=== PATIENT | female | born 1990 | race Caucasian/White ===

== ENCOUNTER 2021-02-08 07:56 | Inpatient (IN) ==
[2021-02-08] MEDS ORDERED: OXYTOCIN 30 UNITS/500 ML BAG IV PRN ×2 (08:22→08:23)
[2021-02-08 08:53] LABS: Hematocrit (blood only) 34.9 % (37-47); Hemoglobin 11.5 g/dL (12.0-16.0); Mean Corpuscular Hemoglobin 28.8 pg (25-34); Mean Corpuscular Volume 87.3 fL (80-100); Mean Platelet Volume 10.6 fL (7.4-10.4); Platelet Count 185 K/uL (130-400); RDW Coefficient of Variation 14.2 % (11.5-14.5); RDW Standard Deviation 45.1 fL (36.4-46.3); White Blood Count 8.47 K/uL (4.8-10.8)
[2021-02-08] MEDS: LACTATED RINGER'S 1,000 ML IV PRN ×4 (09:25→20:43)
[2021-02-08] MEDS ORDERED: FAMOTIDINE 40 MG TABLET PO ONE (09:57)
[2021-02-08] MEDS ORDERED: SODIUM CHLORIDE 0.9% INJ 10 ML VIAL ONE (10:15)
[2021-02-08] MEDS ORDERED: ePHEDrine sulfate 50 MG/ML AMP ONE (10:15)
[2021-02-08] MEDS ORDERED: fentaNYL 2MCG/ML ROPIVACAINE 1.25MG/ML 100 ML BAG EPI ONE (10:15)
[2021-02-08] MEDS ORDERED: BUPIVACAINE 0.25% 30 ML VIAL ONE ×2 (10:15→22:06)
[2021-02-08] MEDS ORDERED: fentaNYL citrate 100 MCG/2 ML VIAL ONE ×2 (10:15→22:05)
[2021-02-08] MEDS ORDERED: ePHEDrine sulfate 50 MG/ML AMP IV PRN (10:22)
[2021-02-08] MEDS ORDERED: ONDANSETRON INJ 2 MG/ML 2 ML VIAL IV PRN (10:22)
[2021-02-08] MEDS ORDERED: diphenhydrAMINE 50 MG/ML VIAL IV PRN (10:22)
[2021-02-08] MEDS ORDERED: NALBUPHINE HCL INJ 10 MG/ML AMP IV PRN (10:22)
[2021-02-08] MEDS ORDERED: NALOXONE HCL 0.4 MG/1 ML VIAL/CARP IV PRN (10:22)
[2021-02-08] MEDS ORDERED: NALOXONE HCL 1 MG in SODIUM CHLORIDE 0.9% 1000ML 1,000 ML IV PRN (10:22)
--- NOTE | 2021-02-08 10:22 | Anesthesiology Consultation ---
Date of Service February 08, 2021 Assessment & Plan ASA ASA2 Proposed Anesthesia Anesthesia Type: Labor Epidural Risk / Benefits Reviewed With: PT / POA / Parent / Guardian, Accepts Plan and Informed Consent Obtained History Height/Weight Height: 5 ft 5 in Weight: 97.069 kg Allergies Allergy/AdvReac Type Severity Reaction Status Date / Time apple Allergy Unknown Rash Verified 02/07/21 19:34 amoxicillin [From Augmentin] Allergy Vomiting Verified 02/07/21 19:34 clavulanic acid Allergy Vomiting Verified 02/07/21 19:34 [From Augmentin] Medications Home Medications Medication Instructions Recorded Confirmed Last Taken prenat.vits,mary,vdi-btrc-hyoos 1 tab PO DAILY 01/20/20 02/08/21 02/08/21 famotidine 10 mg tablet (Pepcid AC) 10 mg PO BID 10/12/20 02/08/21 02/07/21 08:00 Active Medications Generic Name Dose Route Start Last Admin Trade Name Freq PRN Reason Stop Dose Admin Lactated Ringer's 1,000 mls @ 125 mls/hr 02/08/21 08:22 02/08/21 09:25 Lr IV 02/10/21 08:21 999 mls/hr .Q8H PRN Infusion L&D Protocol Protocol Past Medical History Medical History ADHD Chronic low back pain Exercise-induced asthma Migraine headache Narcolepsy Pilonidal cyst Exercise / Class Metabolic Activity II 4-5 Yardwork/Stairs/Walk up hill Past Family History Family History Grandmother (Maternal) Hypertension Grandmother (Paternal) Type 2 diabetes mellitus Father Obstructive sleep apnea Other Allergic rhinitis Kidney disease Past Surgical History Surgical History History of oral surgery History of removal of cyst on back Past Anesthesia History No Hx of Anesthesia Complications and No Family Hx of Anesthesia Complications History of PONV No Hx of PONV and No Hx of Motion Sickness Social History Smoking Status: Never smoker Do You Dip or Chew Tobacco: No Hx Alcohol Use: No Hx Substance Use: No substance use type: does not use Review of Systems denies fever/cough/ colds/ chest pain/ SOB/ ROSSI denies ROSSI Physical Exam Vital Signs Last Vital Signs Temp 36.7 C 02/08/21 08:38 Pulse 77 02/08/21 08:08 Resp 18 02/08/21 08:38 BP 109/60 02/08/21 08:08 ENMT Mouth: no TMJ abnormality and no dentition abnormality Thyromental Distance: > or= 3.5 Finger Breadths Mallampati Class: II Neck neck extension not limited Respiratory normal respiratory effort; no respiratory distress Auscultation: lungs clear to auscultation bilaterally Cardiovascular Rate/Rhythm: regular rate and regular rhythm Neurologic moves all extremities Psychiatric Orientation: alert and oriented x 3 Testing Laboratory Results 02/08/21 08:40
--- NOTE | 2021-02-08 11:46 | Procedure Note ---
Procedure Note Date of Service February 08, 2021 Note monitoring was used to ensure reassuring status. After admission exam was completed this morning, labs checked for adequate platelets and negative COVID, epidural was placed per the patient's request. I then was notified as soon as this was accomplished, and I returned to the room. The patient was verbally consented for placement of a yanes for cervical ripening, with discussion of risks, benefits and alternatives. All her questions were answered. Her legs were placed in lithotomy position. A lubricated, gloved hand was used to examine the cervix confirming vertex presentation of the fetus and no change from this morning's exam of /-. A stylet was lubricated and inserted into a yanes catheter to give it stiffness, and the yanes catheter was then advanced along my fingers until it reached the external cervical os. The yanes was then fed forward off of the stylet, which was itself never moved beyond the external os, such that the soft catheter advanced into the uterine cavity outside of the amnion until the balloon was definitely above the internal cervical os. The balloon was then inflated using sterile water to 35cc volume. Gentle traction was used to seat the balloon downward against the internal cervical os. My hand and the stylet were removed from the vagina, and the yanes was secured to the patient's leg with a standard yanes holding sticker. There was no significant bleeding or leakage of fluid. The heart tones remained reassuring after this process, which the patient tolerated well. Yanes catheter of the bladder was also placed, given the placement of epidural so early in this patient's induction course, to avoid repeat straight catheterization. Pitocin will be used at 3 mu/min until cervical balloon is out. After that point it will be increased per usual protocols for labor induction. Coding CPT Codes Misx Procedure Codes - 86547 Placement of cervical dilator: 43289 Placement of cervical dilator ([id number]) [facility] [place] Mis[facility] Procedure Codes 25253 Placement of cervical dilator
[2021-02-08] MEDS: fentaNYL 2MCG/ML ROPIVACAINE 1.25MG/ML 100 ML BAG EPI PRN (19:14)
--- NOTE | 2021-02-08 22:17 | Communication Note ---
Date of Service: February 08, 2021 asked to reevaluate pt 2/2 pain. pt reports pressure in a specific area of pelvis and back pain. bolused with 100 mcg fentanyl and 5mL of 0.25% bupivic josé miguel. pt received relief. Educated pt on the difficulty in controlling pressure pain and back pain. pt satisfied with care
[2021-02-09] MEDS ORDERED: CALCIUM CARBONATE 500 MG CHEWABLE TAB PO ONE (00:27)
[2021-02-09] MEDS: fentaNYL 2MCG/ML ROPIVACAINE 1.25MG/ML 100 ML BAG EPI PRN ×2 (01:34→07:23)
[2021-02-09] MEDS: LACTATED RINGER'S 1,000 ML IV PRN (04:21)
--- NOTE | 2021-02-09 06:32 | Labor Progress Brief Note ---
Date of Service February 09, 2021 Subjective Comfortable with epidural. Pt was sleeping when RN and I entered the room. Assessment & Plan (1) Encounter for induction of labor: Plan: Patient with postdates . Unsuccessful yanes placement on pre-induction evening, and limited tolerance of vaginal exam/yanes placement led to patient electing epidural prior to yanes placement on day of induction. Epidural unable to be placed until nearly 11am on day of induction due in part to difficulty in patient tolerating that process as well. Once yanes was placed, it remained in situ until evening, at which point patient reached 4cm and pitocin could be moved upwards from ripening doses into induction doses. Through the night I have checked the strip intermittently, and received updates from the RN's who have checked her at intervals and seen good progress until this last check. Patient has remained 8-9cm now for the last two hours, with swelling of the cervix noted on my exam now. There has been excellent descent and feels like plenty of room, so IUPC was placed at this point to allow titration of pitocin to hopefully get the last bit of cervix to reduce. First contraction measured 75MVU but since then, strength has rapidly decreased, and next few contractions dropped to more like 30MVU. There is likely room to go up on pitocin, if tolerance permits it. I remain optimistic that we can achieve vaginal delivery, and document the above to highlight that this is not so much an abnormally slow labor process as an administratively-delayed induction start. Admission and Anticipated Discharge Date Admission Date: February 08, 2021 Physical Exam Genitourinary: FHT cat 1 Barlow Q 2-2.5min Pit @ 11 Cervix 8-/+1 New bloody show noted. presentation KARIN with some caput Cervix mostly remains posterior and is a bit swollen there, anterior lip nearly gone and reducible but this brings the posterior portion of the cervix more anterior, so I'm unable to reduce it all the way around. Patient has been high- bains's recently and may benefit from change of position. IUPC placed with patient permission to allow further titration of pitocin if possible. Results & Data ([facility]) Vital Signs (Past 12 Hours) Vital Signs Temp Pulse Resp BP Pulse Ox 02/09/21 06:18 87 98 02/09/21 06:16 94 H 90 02/09/21 06:13 108 H 97 02/09/21 06:11 96 H 119/81 02/09/21 06:08 78 96 02/09/21 06:03 75 96 02/09/21 06:00 18 02/09/21 05:58 77 96 02/09/21 05:54 77 115/77 02/09/21 05:53 74 96 02/09/21 05:48 77 96 02/09/21 05:43 79 96 02/09/21 05:39 82 115/75 02/09/21 05:38 80 96 02/09/21 05:33 79 96 02/09/21 05:30 16 02/09/21 05:28 88 96 02/09/21 05:25 81 118/79 02/09/21 05:23 92 H 96 02/09/21 05:18 75 96 02/09/21 05:13 73 97 02/09/21 05:09 93 H 117/77 02/09/21 05:08 98.2 F 86 96 02/09/21 05:03 75 97 02/09/21 05:00 16 02/09/21 04:58 75 96 02/09/21 04:56 76 112/71 02/09/21 04:53 71 96 02/09/21 04:48 72 96 02/09/21 04:43 75 95 02/09/21 04:39 75 113/75 02/09/21 04:38 70 96 02/09/21 04:33 72 95 02/09/21 04:30 16 02/09/21 04:28 73 96 02/09/21 04:24 71 110/74 02/09/21 04:23 74 97 02/09/21 04:18 75 97 02/09/21 04:13 96 H 100 02/09/21 04:09 69 111/73 02/09/21 04:08 72 96 02/09/21 04:03 78 95 02/09/21 04:00 16 02/09/21 03:58 74 96 02/09/21 03:54 75 103/72 02/09/21 03:53 77 97 02/09/21 03:48 98 H 97 02/09/21 03:43 85 96 02/09/21 03:39 85 110/70 02/09/21 03:38 69 95 02/09/21 03:33 68 95 02/09/21 03:30 20 02/09/21 03:28 70 95 02/09/21 03:25 74 109/70 02/09/21 03:23 71 95 02/09/21 03:18 70 95 02/09/21 03:13 71 95 02/09/21 03:10 72 105/68 02/09/21 03:08 72 95 02/09/21 03:03 73 95 02/09/21 03:00 20 02/09/21 02:58 75 95 02/09/21 02:56 74 109/69 02/09/21 02:53 80 95 02/09/21 02:48 77 95 02/09/21 02:43 76 96 02/09/21 02:40 98.1 F 71 107/63 02/09/21 02:38 79 96 02/09/21 02:33 93 H 99 02/09/21 02:30 20 02/09/21 02:28 84 96 02/09/21 02:25 89 116/83 02/09/21 02:23 93 H 97 02/09/21 02:18 86 94 02/09/21 02:13 88 96 02/09/21 02:09 86 113/75 02/09/21 02:08 83 97 02/09/21 02:03 82 96 02/09/21 02:00 16 02/09/21 01:58 86 97 02/09/21 01:55 77 116/77 02/09/21 01:53 78 96 02/09/21 01:48 102 H 98 02/09/21 01:43 74 95 02/09/21 01:41 82 112/71 02/09/21 01:38 79 96 02/09/21 01:33 86 99 02/09/21 01:30 18 02/09/21 01:28 75 95 02/09/21 01:24 97 H 112/68 02/09/21 01:23 76 96 02/09/21 01:18 75 98 02/09/21 01:13 75 98 02/09/21 01:10 98.6 F 93 H 120/72 02/09/21 01:08 76 96 02/09/21 01:03 73 96 02/09/21 01:00 16 02/09/21 00:58 75 97 02/09/21 00:54 75 120/76 02/09/21 00:53 72 96 02/09/21 00:48 73 96 02/09/21 00:43 76 96 02/09/21 00:40 74 119/75 02/09/21 00:38 75 96 02/09/21 00:33 72 96 02/09/21 00:30 18 02/09/21 00:28 80 96 02/09/21 00:26 77 124/79 02/09/21 00:23 85 98 02/09/21 00:18 95 H 98 02/09/21 00:15 70 90 02/09/21 00:13 72 95 02/09/21 00:09 77 107/68 02/09/21 00:08 70 96 02/09/21 00:03 71 96 02/09/21 00:00 16 02/08/21 23:58 71 96 02/08/21 23:56 70 114/68 02/08/21 23:53 69 96 02/08/21 23:48 72 97 02/08/21 23:43 72 96 02/08/21 23:40 77 114/70 02/08/21 23:38 73 97 02/08/21 23:33 78 97 02/08/21 23:30 18 02/08/21 23:28 81 96 02/08/21 23:24 69 107/65 02/08/21 23:23 68 97 02/08/21 23:18 69 96 02/08/21 23:13 73 96 02/08/21 23:10 71 107/64 02/08/21 23:08 70 96 02/08/21 23:03 67 95 02/08/21 23:00 16 02/08/21 22:58 71 95 02/08/21 22:55 99.0 F 02/08/21 22:53 88 110/59 L 97 02/08/21 22:51 79 168/75 H 02/08/21 22:49 71 94 02/08/21 22:48 69 94 02/08/21 22:44 67 94 02/08/21 22:43 66 95 02/08/21 22:40 78 101/61 02/08/21 22:38 66 95 02/08/21 22:35 68 94 02/08/21 22:33 68 95 02/08/21 22:30 69 16 107/64 02/08/21 22:28 71 94 02/08/21 22:23 71 94 02/08/21 22:22 68 107/58 L 02/08/21 22:21 71 94 02/08/21 22:18 78 95 02/08/21 22:16 67 94 02/08/21 22:13 72 95 02/08/21 22:09 69 114/63 02/08/21 22:08 74 97 02/08/21 22:03 78 107/56 L 100 02/08/21 22:00 20 02/08/21 21:58 72 95 02/08/21 21:53 73 96 02/08/21 21:50 73 125/74 02/08/21 21:48 77 96 02/08/21 21:43 73 96 02/08/21 21:41 72 120/72 02/08/21 21:38 71 96 02/08/21 21:33 73 97 02/08/21 21:30 73 20 122/76 02/08/21 21:28 79 98 02/08/21 21:23 73 97 02/08/21 21:22 73 115/72 02/08/21 21:18 73 97 02/08/21 21:14 98.1 F 02/08/21 21:13 76 99 02/08/21 21:11 75 115/74 02/08/21 21:08 73 97 02/08/21 21:03 68 97 02/08/21 21:00 20 02/08/21 20:59 73 108/72 02/08/21 20:58 73 98 02/08/21 20:53 71 97 02/08/21 20:50 69 110/70 02/08/21 20:48 70 98 02/08/21 20:43 72 97 02/08/21 20:41 68 97/52 L 02/08/21 20:38 75 98 02/08/21 20:33 75 99 02/08/21 20:30 18 02/08/21 20:29 71 98/53 L 02/08/21 20:28 70 98 02/08/21 20:23 68 97 02/08/21 20:21 69 101/55 L 02/08/21 20:18 70 98 02/08/21 20:13 76 98 02/08/21 20:10 85 103/58 L 02/08/21 20:08 71 99 02/08/21 20:04 68 100/57 L 02/08/21 20:03 73 98 02/08/21 20:02 68 98/58 L 02/08/21 20:00 20 02/08/21 19:58 76 98 02/08/21 19:53 74 98 02/08/21 19:52 69 87/54 L 02/08/21 19:50 85 85/55 L 02/08/21 19:48 77 98 02/08/21 19:43 79 102/55 L 97 02/08/21 19:38 74 98 02/08/21 19:33 73 98 02/08/21 19:31 81 96/50 L 02/08/21 19:30 18 02/08/21 19:28 79 98 02/08/21 19:23 74 97 02/08/21 19:20 98.8 F 75 20 88/55 L 02/08/21 19:18 92 H 98 02/08/21 19:13 75 98 02/08/21 19:10 76 101/56 L 02/08/21 19:08 71 97 02/08/21 19:03 76 97 02/08/21 19:00 73 99/55 L 02/08/21 18:58 70 97 02/08/21 18:53 72 97 02/08/21 18:50 67 103/58 L 02/08/21 18:48 73 97 02/08/21 18:43 70 96 02/08/21 18:40 73 100/57 L 02/08/21 18:38 71 96 02/08/21 18:33 76 96 02/08/21 18:30 71 102/56 L 02/08/21 18:28 70 96 02/08/21 18:23 85 97 Coding Level of Care Code None Diagnoses Encounter for induction of labor Z34.90
[2021-02-09] MEDS ORDERED: NURSING L&D Epidural Breakthrough Pain Update ONE (07:12)
[2021-02-09] MEDS ORDERED: CITRIC ACID/SODIUM CITRATE 15 ML UDC ONE (10:14)
--- NOTE | 2021-02-09 10:17 | Labor Progress Brief Note ---
Date of Service February 09, 2021 Subjective Patient is comfortable with epidural. FHT have been showing late decelerations, not responsive to multiple repositions of patient and resuscitative measures. I discussed this with patient. Recommend proceed to delivery by section. She is agreeable. We reviewed consent, informed consent obtained. Cervix still with posterior lip, station 0. Assessment & Plan Admission and Anticipated Discharge Date Admission Date: February 08, 2021 Results & Data ([facility]) Vital Signs (Past 12 Hours) Vital Signs Temp Pulse Resp BP Pulse Ox 02/09/21 10:13 123 H 94 02/09/21 10:11 86 134/82 02/09/21 10:08 90 96 02/09/21 10:07 88 90 02/09/21 10:03 73 97 02/09/21 10:00 76 125/71 02/09/21 09:58 84 96 02/09/21 09:53 85 98 02/09/21 09:51 102 H 89 L 02/09/21 09:48 77 96 02/09/21 09:43 80 97 02/09/21 09:39 89 108/71 02/09/21 09:38 73 97 02/09/21 09:33 73 97 02/09/21 09:28 73 97 02/09/21 09:24 72 113/73 02/09/21 09:23 74 97 02/09/21 09:18 73 98 02/09/21 09:16 74 87 L 02/09/21 09:13 74 98 02/09/21 09:09 78 110/71 02/09/21 09:08 76 98 02/09/21 09:03 79 100 02/09/21 09:00 106 H 16 88 L 02/09/21 08:58 82 99 02/09/21 08:55 86 104/62 02/09/21 08:53 94 H 98 02/09/21 08:49 37.1 C 16 02/09/21 08:48 71 98 02/09/21 08:43 70 98 02/09/21 08:41 71 99/59 L 02/09/21 08:38 74 98 02/09/21 08:33 71 98 02/09/21 08:28 69 98 02/09/21 08:25 77 95/60 L 02/09/21 08:23 71 98 02/09/21 08:18 80 99 02/09/21 08:13 81 99 02/09/21 08:11 88 107/63 02/09/21 08:09 93 H 88 L 02/09/21 08:08 103 H 99 02/09/21 08:03 74 97 02/09/21 07:58 78 98 02/09/21 07:56 82 117/80 02/09/21 07:55 92 H 88 L 02/09/21 07:53 79 98 02/09/21 07:48 83 98 02/09/21 07:43 82 98 02/09/21 07:40 78 103/66 02/09/21 07:38 84 98 02/09/21 07:33 92 H 100 02/09/21 07:30 18 02/09/21 07:28 36.9 C 87 18 100 02/09/21 07:24 79 105/69 02/09/21 07:23 83 99 02/09/21 07:18 80 99 02/09/21 07:13 86 98 02/09/21 07:09 86 99/65 L 02/09/21 07:08 86 100 02/09/21 07:03 82 99 02/09/21 07:00 18 02/09/21 06:58 95 H 98 02/09/21 06:54 80 95/59 L 02/09/21 06:53 80 99 02/09/21 06:48 88 93/60 L 97 02/09/21 06:43 99 H 96 02/09/21 06:40 97 H 89 L 02/09/21 06:38 86 97 02/09/21 06:33 81 97 02/09/21 06:30 20 02/09/21 06:28 95 H 99 02/09/21 06:23 83 96 02/09/21 06:18 87 98 02/09/21 06:16 94 H 90 02/09/21 06:13 108 H 97 02/09/21 06:11 96 H 119/81 02/09/21 06:08 78 96 02/09/21 06:03 75 96 02/09/21 06:00 18 02/09/21 05:58 77 96 02/09/21 05:54 77 115/77 02/09/21 05:53 74 96 02/09/21 05:48 77 96 02/09/21 05:43 79 96 02/09/21 05:39 82 115/75 02/09/21 05:38 80 96 02/09/21 05:33 79 96 02/09/21 05:30 16 02/09/21 05:28 88 96 02/09/21 05:25 81 118/79 02/09/21 05:23 92 H 96 02/09/21 05:18 75 96 02/09/21 05:13 73 97 02/09/21 05:09 93 H 117/77 02/09/21 05:08 36.8 C 86 96 02/09/21 05:03 75 97 02/09/21 05:00 16 02/09/21 04:58 75 96 02/09/21 04:56 76 112/71 02/09/21 04:53 71 96 02/09/21 04:48 72 96 02/09/21 04:43 75 95 02/09/21 04:39 75 113/75 02/09/21 04:38 70 96 02/09/21 04:33 72 95 02/09/21 04:30 16 02/09/21 04:28 73 96 02/09/21 04:24 71 110/74 02/09/21 04:23 74 97 02/09/21 04:18 75 97 02/09/21 04:13 96 H 100 02/09/21 04:09 69 111/73 02/09/21 04:08 72 96 02/09/21 04:03 78 95 02/09/21 04:00 16 02/09/21 03:58 74 96 02/09/21 03:54 75 103/72 02/09/21 03:53 77 97 02/09/21 03:48 98 H 97 02/09/21 03:43 85 96 02/09/21 03:39 85 110/70 02/09/21 03:38 69 95 02/09/21 03:33 68 95 02/09/21 03:30 20 02/09/21 03:28 70 95 02/09/21 03:25 74 109/70 02/09/21 03:23 71 95 02/09/21 03:18 70 95 02/09/21 03:13 71 95 02/09/21 03:10 72 105/68 02/09/21 03:08 72 95 02/09/21 03:03 73 95 02/09/21 03:00 20 02/09/21 02:58 75 95 02/09/21 02:56 74 109/69 02/09/21 02:53 80 95 02/09/21 02:48 77 95 02/09/21 02:43 76 96 02/09/21 02:40 36.7 C 71 107/63 02/09/21 02:38 79 96 02/09/21 02:33 93 H 99 02/09/21 02:30 20 02/09/21 02:28 84 96 02/09/21 02:25 89 116/83 02/09/21 02:23 93 H 97 02/09/21 02:18 86 94 02/09/21 02:13 88 96 02/09/21 02:09 86 113/75 02/09/21 02:08 83 97 02/09/21 02:03 82 96 02/09/21 02:00 16 02/09/21 01:58 86 97 02/09/21 01:55 77 116/77 02/09/21 01:53 78 96 02/09/21 01:48 102 H 98 02/09/21 01:43 74 95 02/09/21 01:41 82 112/71 02/09/21 01:38 79 96 02/09/21 01:33 86 99 02/09/21 01:30 18 02/09/21 01:28 75 95 02/09/21 01:24 97 H 112/68 02/09/21 01:23 76 96 02/09/21 01:18 75 98 02/09/21 01:13 75 98 02/09/21 01:10 37.0 C 93 H 120/72 02/09/21 01:08 76 96 02/09/21 01:03 73 96 02/09/21 01:00 16 02/09/21 00:58 75 97 02/09/21 00:54 75 120/76 02/09/21 00:53 72 96 02/09/21 00:48 73 96 02/09/21 00:43 76 96 02/09/21 00:40 74 119/75 02/09/21 00:38 75 96 02/09/21 00:33 72 96 02/09/21 00:30 18 02/09/21 00:28 80 96 02/09/21 00:26 77 124/79 02/09/21 00:23 85 98 02/09/21 00:18 95 H 98 02/09/21 00:15 70 90 02/09/21 00:13 72 95 02/09/21 00:09 77 107/68 02/09/21 00:08 70 96 02/09/21 00:03 71 96 02/09/21 00:00 16 02/08/21 23:58 71 96 02/08/21 23:56 70 114/68 02/08/21 23:53 69 96 02/08/21 23:48 72 97 02/08/21 23:43 72 96 02/08/21 23:40 77 114/70 02/08/21 23:38 73 97 02/08/21 23:33 78 97 02/08/21 23:30 18 02/08/21 23:28 81 96 02/08/21 23:24 69 107/65 02/08/21 23:23 68 97 02/08/21 23:18 69 96 02/08/21 23:13 73 96 02/08/21 23:10 71 107/64 02/08/21 23:08 70 96 02/08/21 23:03 67 95 02/08/21 23:00 16 02/08/21 22:58 71 95 02/08/21 22:55 37.2 C 02/08/21 22:53 88 110/59 L 97 02/08/21 22:51 79 168/75 H 02/08/21 22:49 71 94 02/08/21 22:48 69 94 02/08/21 22:44 67 94 02/08/21 22:43 66 95 02/08/21 22:40 78 101/61 02/08/21 22:38 66 95 02/08/21 22:35 68 94 02/08/21 22:33 68 95 02/08/21 22:30 69 16 107/64 02/08/21 22:28 71 94 02/08/21 22:23 71 94 02/08/21 22:22 68 107/58 L 02/08/21 22:21 71 94 02/08/21 22:18 78 95 02/08/21 22:16 67 94 Coding Level of Care Code None
--- NOTE | 2021-02-09 10:18 | History & Physical Bridge Note ---
Date of Service February 09, 2021 History & Physical Bridge Note I have examined the patient, reviewed the History & Physical and in the interval since the performance of the History & Physical I have noted the following changes of clinical significance: no changes noted Will proceed to section for intolerance to labor. Category 3 tracing.
[2021-02-09] MEDS ORDERED: ceFAZolin 2000MG 2,000 MG/15 ML SYR IV SCH (10:35)
[2021-02-09] MEDS ORDERED: fentaNYL citrate 100 MCG/2 ML VIAL ONE (10:37)
[2021-02-09] MEDS ORDERED: LIDOCAINE 2%/EPINEPHRINE 1:200,000 20 ML SDV ONE (10:37)
[2021-02-09] MEDS ORDERED: OXYTOCIN 10 UNITS/ML VIAL ONE ×2 (11:04→11:29)
[2021-02-09] MEDS ORDERED: DEXAMETHASONE SOD INJ 4 MG/ML VIAL ONE (11:31)
[2021-02-09] MEDS ORDERED: ONDANSETRON INJ 2 MG/ML 2 ML VIAL ONE (11:32)
[2021-02-09] MEDS ORDERED: MoRPHine SULFATE PF 1 MG/ML 10 ML AMP/VIAL ONE (11:36)
[2021-02-09] MEDS ORDERED: PHENYLEPHRINE 100MCG/ML 5ML SYR ONE (11:40)
[2021-02-09] MEDS ORDERED: PROMETHAZINE HCL INJ 25 MG/ML 1 ML VIAL ONE (11:45)
[2021-02-09 11:50] LABS: Base Excess Cord Arterial Bld -5.4 mEq/L (-9-1.8); CO2 Cord Arterial Blood 63 mmHg (39.1-73.5); HCO3 Cord Arterial Blood 24 mmol/L (19.7-28.5); PO2 Cord Arterial Blood 12 mmHg (4.1-31.7)
[2021-02-09 11:51] LABS: Base Excess Cord Venous Blood -6.6 mEq/L (-7.7-1.9); Cord Venous Blood HCO3 21 mmol/L (18.4-26.8); Cord Venous Blood PCO2 50 mmHg (30.4-57.2); Cord Venous Blood PO2 21 mmHg (14.1-43.3); Cord Venous Blood pH 7.25 (7.20-7.44); Oxygen Sat Cord Arterial Blood < 60.0 % (<60)
[2021-02-09 11:52] LABS: O2 Saturation Cord Venous Bld < 60.0 % (<68)
[2021-02-09] MEDS ORDERED: NALOXONE HCL 1 MG in SODIUM CHLORIDE 0.9% 1000ML 1,000 ML IV PRN (12:13)
[2021-02-09] MEDS ORDERED: diphenhydrAMINE 50 MG/ML VIAL IV PRN (12:13)
[2021-02-09] MEDS ORDERED: NALBUPHINE HCL INJ 10 MG/ML AMP IV PRN (12:13)
[2021-02-09] MEDS ORDERED: NALOXONE HCL 0.08 MG in SYRINGE 1.8 ML IV PRN (12:13)
[2021-02-09] MEDS ORDERED: MoRPHine SULFATE PF 1 MG/ML 10 ML AMP/VIAL EPI ONE (12:13)
[2021-02-09] MEDS ORDERED: NALOXONE HCL 0.4 MG/1 ML VIAL/CARP IV PRN (12:13)
[2021-02-09] MEDS ORDERED: PROMETHAZINE HCL 25 MG in SODIUM CHLORIDE 0.9% 50 ML IV PRN (12:13)
[2021-02-09] MEDS ORDERED: ePHEDrine sulfate 50 MG/ML AMP IV PRN (12:13)
[2021-02-09] MEDS ORDERED: LACTATED RINGER'S 500 ML IV PRN (12:13)
[2021-02-09] MEDS ORDERED: ONDANSETRON INJ 2 MG/ML 2 ML VIAL IV PRN (12:13)
[2021-02-09] MEDS ORDERED: SODIUM CHLORIDE 0.9% 1000ML 1,000 ML IV SCH (12:15)
[2021-02-09] MEDS ORDERED: NO NARCOTICS OR SEDATIVES SCH (12:15)
--- NOTE | 2021-02-09 12:16 | Anesthesia Procedure Note ---
Date of Service February 09, 2021 Anesthesia Post Epidural Note Vital Signs Vital Signs: Temp Pulse Resp BP Pulse Ox 37.1 C 101 H 18 105/67 99 02/09/21 08:49 02/09/21 12:13 02/09/21 10:30 02/09/21 12:13 02/09/21 12:13 Pain Intensity Abdomen: Pain Intensity: 6 Back: Pain Intensity: 2 Notes Mental Status: alert / awake / arousable Nausea / Vomiting: adequately controlled Pain: adequately controlled Airway Patency, RR, SpO2: stable & adequate BP & HR: stable & adequate Hydration State: stable & adequate Neuraxial Anesthesia: was administered and sensory block is resolving Anesthetic Complications: no major complications apparent Epidural: Removed without complications and With tip intact
[2021-02-09] MEDS ORDERED: SUPERCREAM 0.870% 15 GM JAR EXT PRN (12:17)
[2021-02-09] MEDS ORDERED: HYDROCORTISONE ACETATE 25 MG SUPP PR PRN (12:17)
[2021-02-09] MEDS ORDERED: BENZOCAINE 20% AER SPR 82.5 GM CAN EXT PRN (12:17)
[2021-02-09] MEDS ORDERED: DIPHTHERIA/TETANUS/PERTUSSIS 0.5 ML SYR/VIAL IM ONE (12:17)
[2021-02-09] MEDS ORDERED: MAGNESIUM HYDROXIDE SUSP 30 ML UDC PO PRN (12:17)
[2021-02-09] MEDS ORDERED: SENNA 8.6 MG TAB PO PRN (12:17)
[2021-02-09] MEDS ORDERED: LACTATED RINGER'S 1,000 ML IV SCH (12:30)
[2021-02-09] MEDS: OXYTOCIN 30 UNITS in LACTATED RINGER'S 1,000 ML IV SCH ×2 (13:56→22:00)
--- NOTE | 2021-02-09 14:00 | Operative Report ---
PG Post Operative Report Pre & Post Diagnosis Operation Date: 02/09/21 10:30 Pre-Op Diagnosis: Primary low transverse section for intolerance to labor and meconium stained fluid Post-Op Diagnosis: Primary low transverse section for intolerance to labor and meconium stained fluid, living female child at 1112 I identified the patient and participated in the time-out.: Yes Procedure Operation Date: 02/09/21 10:30 Actual Procedures p Primary Low Transverse Section in LD for living female child at 1112(Bilateral) - Namrata Parkinson DO Surgeon Namrata Parkinson, Photovoltaic Panel Installer K Salavitabar DO PGY1, J Patrice NORTON Estimated Blood Loss 800 Findings Consistent with Post-Op Diagnosis Viable female , Agpars 2, 5, 8. Weight - please see nursery records. Specimens placenta, cord blood, cord gas. Drains yanes, pink-stained prior to and during case Anesthesia Type L&D Only Epidural Exists Complications none Disposition Accompanied Patient To Recovery: Yes Disposition: L&D Indications 30 yo @ 41 3, induction of labor started yesterday. 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 Description of Procedure The patient was seen in her labor and delivery room, risks benefits and alternatives to surgery were reviewed. Informed consent obtained. Questions were answered. She was taken to the operating room, epidural anesthesia was redosed. She was then prepared and draped in the usual sterile fashion in the supine position with a leftward tilt. Timeout was confirmed. A Pfannenstiel skin incision was made with a scalpel, and carried through to the underlying layer of fascia. Fascia was nicked at midline, and this incision was extended bilaterally. The superior aspect of the fascial incision was grasped with Jessi clamps x2, elevated off the underlying rectus abdominis muscles, and dissected sharply and bluntly. In similar fashion, the inferior aspect of the fascial incision was dissected. The rectus abdominis muscles were , and the peritoneum was entered bluntly digitally. This was extended bilaterally. The bladder flap was taken down carefully using Metzenbaum scissors. Using a new scalpel, a low transverse uterine incision was created. Thick meconium-stained amniotic fluid noted. The infant was delivered from a cephalic presentation. The head delivered, followed by shoulders and body. Nuchal x 2. The cord was doubly clamped and cut, and the was handed off to the waiting dry roaster. A segment was retained for cord gases. Cord blood was obtained. The placenta was delivered spontaneously intact. The uterus was exteriorized, and cleared of all clots and debris. There was a left-sided cervical extension that was reapproximated with 0-vicryl. The hysterotomy incision was reapproximated using 0 Vicryl in a running locked stitch. A second layer of the same suture was used to imbricate the incision. Posterior uterus was evaluated and normal. The uterus was returned to the abdomen, and gutters were cleared of clots and debris. After additional sutures to further close the left cervical extension defect, excellent hemostasis was observed. The fascial incision was reapproximated using 0 Vicryl in a running stitch. The subcutaneous tissue was irrigated, and reapproximated using 2-0 plain gut in a running stitch. The skin was reapproximated using 4-0 Vicryl in a running subcuticular stitch. Steri-Strips and a bandage were applied. The patient tolerated the procedure well, and will be taken to the recovery area in stable and good condition. Sponge, instrument, needle counts correct x 2 at conclusion of case. I attest to the content of the Intraoperative Record and any orders documented therein. Any exceptions are noted below. OB Procedure Charges 49306
[2021-02-09] MEDS: SIMETHICONE 80 MG CHEW PO SCH ×3 (15:59→20:50)
[2021-02-09] MEDS: KETOROLAC 30 MG/ML VIAL IV PRN ×2 (16:09→22:03)
--- NOTE | 2021-02-09 20:34 | Anesthesiology Progress Note ---
Date of Service February 09, 2021 Anesthesia Post Procedure Vital Signs Vital Signs: Temp Pulse Pulse Resp BP BP Pulse Ox 02/09/21 15:28 37.3 C 74 18 115/79 97 02/09/21 14:16 75 94 02/09/21 14:13 37 C 75 18 110/58 L 96 02/09/21 14:08 76 98 02/09/21 14:03 75 120/64 99 02/09/21 13:58 75 100 02/09/21 13:57 75 90 02/09/21 13:53 77 113/63 99 02/09/21 13:48 74 96 02/09/21 13:43 74 20 109/57 L 96 02/09/21 13:38 74 98 02/09/21 13:33 74 113/60 99 02/09/21 13:28 75 100 02/09/21 13:23 75 114/59 L 99 02/09/21 13:18 76 100 02/09/21 13:13 78 16 107/61 100 02/09/21 13:08 77 100 02/09/21 13:03 81 16 107/63 100 02/09/21 12:58 78 100 02/09/21 12:53 77 14 112/66 100 02/09/21 12:48 77 100 02/09/21 12:43 79 14 110/60 100 02/09/21 12:38 78 100 02/09/21 12:33 93 H 14 108/53 L 99 02/09/21 12:28 89 100 02/09/21 12:24 106 H 92 02/09/21 12:23 96 H 16 105/71 100 02/09/21 12:18 78 100 02/09/21 12:13 36.6 C 101 H 16 105/67 99 02/09/21 10:43 86 100 02/09/21 10:41 93 H 121/83 02/09/21 10:38 83 96 02/09/21 10:33 85 95 02/09/21 10:30 18 02/09/21 10:28 84 98 02/09/21 10:26 96 H 83 L 02/09/21 10:24 88 127/92 02/09/21 10:23 91 H 99 02/09/21 10:18 96 H 97 02/09/21 10:13 123 H 94 02/09/21 10:11 86 134/82 02/09/21 10:08 90 96 02/09/21 10:07 88 90 02/09/21 10:03 73 97 02/09/21 10:00 76 125/71 02/09/21 09:58 84 96 02/09/21 09:53 85 98 02/09/21 09:51 102 H 89 L 02/09/21 09:48 77 96 02/09/21 09:43 80 97 02/09/21 09:39 89 108/71 02/09/21 09:38 73 97 02/09/21 09:33 73 97 02/09/21 09:28 73 97 02/09/21 09:24 72 113/73 02/09/21 09:23 74 97 02/09/21 09:18 73 98 02/09/21 09:16 74 87 L 02/09/21 09:13 74 98 02/09/21 09:09 78 110/71 02/09/21 09:08 76 98 02/09/21 09:03 79 100 02/09/21 09:00 106 H 16 88 L 02/09/21 08:58 82 99 02/09/21 08:55 86 104/62 02/09/21 08:53 94 H 98 02/09/21 08:49 37.1 C 16 02/09/21 08:48 71 98 02/09/21 08:43 70 98 02/09/21 08:41 71 99/59 L 02/09/21 08:38 74 98 02/09/21 08:33 71 98 02/09/21 08:28 69 98 02/09/21 08:25 77 95/60 L 02/09/21 08:23 71 98 02/09/21 08:18 80 99 02/09/21 08:13 81 99 02/09/21 08:11 88 107/63 02/09/21 08:09 93 H 88 L 02/09/21 08:08 103 H 99 02/09/21 08:03 74 97 02/09/21 07:58 78 98 02/09/21 07:56 82 117/80 02/09/21 07:55 92 H 88 L 02/09/21 07:53 79 98 02/09/21 07:48 83 98 02/09/21 07:43 82 98 02/09/21 07:40 78 103/66 02/09/21 07:38 84 98 02/09/21 07:33 92 H 100 02/09/21 07:30 18 02/09/21 07:28 36.9 C 87 18 100 02/09/21 07:24 79 105/69 02/09/21 07:23 83 99 02/09/21 07:18 80 99 02/09/21 07:13 86 98 02/09/21 07:09 86 99/65 L 02/09/21 07:08 86 100 02/09/21 07:03 82 99 02/09/21 07:00 18 02/09/21 06:58 95 H 98 02/09/21 06:54 80 95/59 L 02/09/21 06:53 80 99 02/09/21 06:48 88 93/60 L 97 02/09/21 06:43 99 H 96 02/09/21 06:40 97 H 89 L 02/09/21 06:38 86 97 02/09/21 06:33 81 97 02/09/21 06:30 20 02/09/21 06:28 95 H 99 02/09/21 06:23 83 96 02/09/21 06:18 87 98 02/09/21 06:16 94 H 90 02/09/21 06:13 108 H 97 02/09/21 06:11 96 H 119/81 02/09/21 06:08 78 96 02/09/21 06:03 75 96 02/09/21 06:00 18 02/09/21 05:58 77 96 02/09/21 05:54 77 115/77 02/09/21 05:53 74 96 02/09/21 05:48 77 96 02/09/21 05:43 79 96 02/09/21 05:39 82 115/75 02/09/21 05:38 80 96 02/09/21 05:33 79 96 02/09/21 05:30 16 02/09/21 05:28 88 96 02/09/21 05:25 81 118/79 02/09/21 05:23 92 H 96 02/09/21 05:18 75 96 02/09/21 05:13 73 97 02/09/21 05:09 93 H 117/77 02/09/21 05:08 36.8 C 86 96 02/09/21 05:03 75 97 02/09/21 05:00 16 02/09/21 04:58 75 96 02/09/21 04:56 76 112/71 02/09/21 04:53 71 96 02/09/21 04:48 72 96 02/09/21 04:43 75 95 02/09/21 04:39 75 113/75 02/09/21 04:38 70 96 02/09/21 04:33 72 95 02/09/21 04:30 16 02/09/21 04:28 73 96 02/09/21 04:24 71 110/74 02/09/21 04:23 74 97 02/09/21 04:18 75 97 02/09/21 04:13 96 H 100 02/09/21 04:09 69 111/73 02/09/21 04:08 72 96 02/09/21 04:03 78 95 02/09/21 04:00 16 02/09/21 03:58 74 96 02/09/21 03:54 75 103/72 02/09/21 03:53 77 97 02/09/21 03:48 98 H 97 02/09/21 03:43 85 96 02/09/21 03:39 85 110/70 02/09/21 03:38 69 95 02/09/21 03:33 68 95 02/09/21 03:30 20 02/09/21 03:28 70 95 02/09/21 03:25 74 109/70 02/09/21 03:23 71 95 02/09/21 03:18 70 95 02/09/21 03:13 71 95 02/09/21 03:10 72 105/68 02/09/21 03:08 72 95 02/09/21 03:03 73 95 02/09/21 03:00 20 02/09/21 02:58 75 95 02/09/21 02:56 74 109/69 02/09/21 02:53 80 95 02/09/21 02:48 77 95 02/09/21 02:43 76 96 02/09/21 02:40 36.7 C 71 107/63 02/09/21 02:38 79 96 02/09/21 02:33 93 H 99 02/09/21 02:30 20 02/09/21 02:28 84 96 02/09/21 02:25 89 116/83 02/09/21 02:23 93 H 97 02/09/21 02:18 86 94 02/09/21 02:13 88 96 02/09/21 02:09 86 113/75 02/09/21 02:08 83 97 02/09/21 02:03 82 96 02/09/21 02:00 16 02/09/21 01:58 86 97 02/09/21 01:55 77 116/77 02/09/21 01:53 78 96 02/09/21 01:48 102 H 98 02/09/21 01:43 74 95 02/09/21 01:41 82 112/71 02/09/21 01:38 79 96 02/09/21 01:33 86 99 02/09/21 01:30 18 02/09/21 01:28 75 95 02/09/21 01:24 97 H 112/68 02/09/21 01:23 76 96 02/09/21 01:18 75 98 02/09/21 01:13 75 98 02/09/21 01:10 37.0 C 93 H 120/72 02/09/21 01:08 76 96 02/09/21 01:03 73 96 02/09/21 01:00 16 02/09/21 00:58 75 97 02/09/21 00:54 75 120/76 02/09/21 00:53 72 96 02/09/21 00:48 73 96 02/09/21 00:43 76 96 02/09/21 00:40 74 119/75 02/09/21 00:38 75 96 02/09/21 00:33 72 96 02/09/21 00:30 18 02/09/21 00:28 80 96 02/09/21 00:26 77 124/79 02/09/21 00:23 85 98 02/09/21 00:18 95 H 98 02/09/21 00:15 70 90 02/09/21 00:13 72 95 02/09/21 00:09 77 107/68 02/09/21 00:08 70 96 02/09/21 00:03 71 96 02/09/21 00:00 16 02/08/21 23:58 71 96 02/08/21 23:56 70 114/68 02/08/21 23:53 69 96 02/08/21 23:48 72 97 02/08/21 23:43 72 96 02/08/21 23:40 77 114/70 02/08/21 23:38 73 97 02/08/21 23:33 78 97 02/08/21 23:30 18 02/08/21 23:28 81 96 02/08/21 23:24 69 107/65 02/08/21 23:23 68 97 02/08/21 23:18 69 96 02/08/21 23:13 73 96 02/08/21 23:10 71 107/64 02/08/21 23:08 70 96 02/08/21 23:03 67 95 02/08/21 23:00 16 02/08/21 22:58 71 95 02/08/21 22:55 37.2 C 02/08/21 22:53 88 110/59 L 97 02/08/21 22:51 79 168/75 H 02/08/21 22:49 71 94 02/08/21 22:48 69 94 02/08/21 22:44 67 94 02/08/21 22:43 66 95 02/08/21 22:40 78 101/61 02/08/21 22:38 66 95 02/08/21 22:35 68 94 02/08/21 22:33 68 95 02/08/21 22:30 69 16 107/64 02/08/21 22:28 71 94 02/08/21 22:23 71 94 02/08/21 22:22 68 107/58 L 02/08/21 22:21 71 94 02/08/21 22:18 78 95 02/08/21 22:16 67 94 02/08/21 22:13 72 95 02/08/21 22:09 69 114/63 02/08/21 22:08 74 97 02/08/21 22:03 78 107/56 L 100 02/08/21 22:00 20 02/08/21 21:58 72 95 02/08/21 21:53 73 96 02/08/21 21:50 73 125/74 02/08/21 21:48 77 96 02/08/21 21:43 73 96 02/08/21 21:41 72 120/72 02/08/21 21:38 71 96 02/08/21 21:33 73 97 02/08/21 21:30 73 20 122/76 02/08/21 21:28 79 98 02/08/21 21:23 73 97 02/08/21 21:22 73 115/72 02/08/21 21:18 73 97 02/08/21 21:14 36.7 C 02/08/21 21:13 76 99 02/08/21 21:11 75 115/74 02/08/21 21:08 73 97 02/08/21 21:03 68 97 02/08/21 21:00 20 02/08/21 20:59 73 108/72 02/08/21 20:58 73 98 02/08/21 20:53 71 97 02/08/21 20:50 69 110/70 02/08/21 20:48 70 98 02/08/21 20:43 72 97 02/08/21 20:41 68 97/52 L 02/08/21 20:38 75 98 Pain Intensity Abdomen: Pain Intensity: 6 Back: Pain Intensity: 2 Transfer of Care Handoff Completed per policy Notes Mental Status: alert / awake / arousable Patient Amnestic to Procedure: Yes Nausea / Vomiting: adequately controlled Pain: adequately controlled Airway Patency, RR, SpO2: stable & adequate BP & HR: stable & adequate Hydration State: stable & adequate Anesthetic Complications: no major complications apparent
[2021-02-09] MEDS: DOCUSATE SODIUM 100 MG CAP PO SCH (20:50)
[2021-02-10] MEDS: KETOROLAC 30 MG/ML VIAL IV PRN (05:55)
[2021-02-10] MEDS ORDERED: CITRIC ACID/SODIUM CITRATE 15 ML UDC PO SCH (06:00)
[2021-02-10] MEDS ORDERED: KETOROLAC 30 MG/ML VIAL IV PRN (06:13)
[2021-02-10] MEDS ORDERED: DC INTRASPINAL MORPHINE SCH (06:13)
[2021-02-10] MEDS ORDERED: ONDANSETRON INJ 2 MG/ML 2 ML VIAL IV PRN (06:13)
[2021-02-10] MEDS ORDERED: oxyCODONE/ACETAMINOPHEN 5mg/325mg TAB PO PRN (06:13)
[2021-02-10] MEDS ORDERED: PROMETHAZINE HCL 25 MG in SODIUM CHLORIDE 0.9% 50 ML IV PRN (06:13)
[2021-02-10] MEDS ORDERED: diphenhydrAMINE 50 MG/ML VIAL IV PRN (06:13)
[2021-02-10] MEDS ORDERED: diphenhydrAMINE Capsule 25 MG CAP PO PRN (06:13)
--- NOTE | 2021-02-10 06:44 | Obstetrical Progress Note ---
Date of Service <Martinez Hernandez DO - Last Filed: 02/10/21 07:57> February 10, 2021 Assessment & Plan <Martinez Hernandez DO - Last Filed: 02/10/21 07:57> (1) Encounter for care and examination after delivery: 30 yo post op day 1 from , doing well. -Continue routine post care. - vital sings reviewed and WNL. (Tmax 37.3) -Blood type O+, GBS negative, Rubella Immune. -Encourage ambulation, monitor and control pain with Motrin, tylenol PRN, resume regular diet, monitor lochia. -encourage breast feeding -hemoglobin 8.4 this morning, will continue to monitor vitals and symptoms with continued fluid intake. <Namrata Prakinson, - Last Filed: 02/10/21 08:01> (1) Encounter for care and examination after delivery: Subjective <Martinez Hernandez DO - Last Filed: 02/10/21 07:57> Ambulation: ambulating normally Voiding: no voiding problems Passing Gas:: Yes Diet Tolerance:: regular diet Lochia:: Small Feeding Type:: breast feeding Current Pain Level(1-10): 0 Review of Systems Denies fever, chills, sweats Denies shortness of breath, difficulty breathing, chest pain, palpitations, chest pressure. Denies breast pain. Denies dysuria. Denies headache or changes in vision Physical Exam <Martinez Hernandez DO - Last Filed: 02/10/21 07:57> General: Alert, oriented. No acute distress. Cardiac: Regular rate and rhythm, no murmurs/rubs/gallops. Respiratory: Clear to auscultation bilaterally a/p, no wheezes/rales/rhonchi. No increased work of breathing. Symmetrical chest rise. No respiratory distress. Abdomen: Soft, nontender, nondistended. Bowel sounds present. Uterus: Uterine fundus firm, palpable 2 cm below umbilicus. Surgical scar clean and healing well. Lower Extremities: No lower extremity edema or swelling. No deep calf pain. Gallo's negative bilaterally Results & Data ([facility]) <Martinez Hernandez DO - Last Filed: 02/10/21 07:57> Vital Signs (Past 12 Hours) Vital Signs Temp Pulse Resp BP Pulse Ox 02/10/21 05:30 17 96 02/10/21 04:30 16 95 02/10/21 03:40 36.9 C 79 16 97/64 L 97 02/10/21 01:30 16 95 02/10/21 00:30 16 95 02/09/21 23:30 37.3 C 79 17 104/68 96 02/09/21 20:57 16 95 02/09/21 19:15 37.3 C 79 16 105/65 96 <Namrata Parkinson DO - Last Filed: 02/10/21 08:01> Co-Signing Physician Notes Resident Physician Supervision Note: I was present with Dr. Hernandez during the history and exam. I discussed the case with the resident and agree with the findings and plan as documented in the note. Any exceptions or clarifications are listed here: POD#1. Decreased urine output this morning, will give IV fluids bolus - hgb 8.4 (down from 11.5), will plan to monitor urine output after bolus. Documented By: Namrata Parkinson DO Resident Activity Tracking <Martinez Hernandez DO - Last Filed: 02/10/21 07:57> Resident Involvement: Resident Care Provided Care Provided: OB Delivery
[2021-02-10 07:14] LABS: Basophils # (auto) 0.01 K/uL (0-0.2); Basophils % (auto) 0.1 %; Eosinophils # (auto) 0.05 K/uL (0-0.5); Eosinophils % (auto) 0.4 %; Hematocrit (blood only) 25.3 % (37-47); Hemoglobin 8.4 g/dL (12.0-16.0); Immature Granulocytes # (auto) 0.03 K/uL (0.00-0.02); Immature Granulocytes % (auto) 0.2 %; Lymphocytes # (auto) 1.83 K/uL (1.2-3.4); Lymphocytes % (auto) 13.5 %; Mean Corpuscular Hemoglobin 29.1 pg (25-34); Mean Corpuscular Hgb Conc 33.2 g/dL (32-36); Mean Corpuscular Volume 87.5 fL (80-100); Monocytes # (auto) 0.94 K/uL (0.11-0.59); Monocytes % (auto) 6.9 %; Neutrophils # (auto) 10.73 K/uL (1.4-6.5); Neutrophils % (auto) 78.9 %; Platelet Count 143 K/uL (130-400); RDW Coefficient of Variation 14.7 % (11.5-14.5); RDW Standard Deviation 47.1 fL (36.4-46.3); Red Blood Count 2.89 M/uL (4.2-5.4); White Blood Count 13.59 K/uL (4.8-10.8)
[2021-02-10] MEDS ORDERED: LACTATED RINGER'S 500 ML IV ONE (07:18)
[2021-02-10] MEDS: PRENATAL VITAMIN 1 TAB PO SCH (08:33)
[2021-02-10] MEDS: DOCUSATE SODIUM 100 MG CAP PO SCH ×2 (08:33→21:12)
[2021-02-10] MEDS: FERROUS SULFATE 325 MG TAB PO SCH (08:33)
[2021-02-10] MEDS: SIMETHICONE 80 MG CHEW PO SCH ×4 (08:33→21:13)
[2021-02-10] MEDS: IBUPROFEN 600 MG TAB PO PRN ×2 (15:44→21:12)
[2021-02-10] MEDS ORDERED: bisacodyL 5 MG TABEC PO SCH (20:00)
[2021-02-11] MEDS: IBUPROFEN 600 MG TAB PO PRN ×4 (05:03→19:06)
--- NOTE | 2021-02-11 06:18 | Obstetrical Progress Note ---
Date of Service <Martinez Hernandez DO - Last Filed: 02/11/21 07:03> February 11, 2021 Assessment & Plan <Martinez Hernandez DO - Last Filed: 02/11/21 07:03> (1) Encounter for care and examination after delivery: 30 yo post op day 2 from , doing well. -Continue routine post care. - vital signs reviewed and WNL. (Tmax 37.3) -Blood type O+, GBS negative, Rubella Immune. -Encourage ambulation, monitor and control pain with Motrin, tylenol PRN. -encourage breast feeding -Hemoglobin today 8.4, no change from hemoglobin reading yesterday. <Shirley Ivan MD, FACOG - Last Filed: 02/11/21 07:05> (1) Encounter for care and examination after delivery: Subjective <Martinez Hernandez DO - Last Filed: 02/11/21 07:03> Ambulation: ambulating normally Voiding: no voiding problems Passing Gas:: Yes Diet Tolerance:: regular diet Lochia:: Small Feeding Type:: breast feeding Current Pain Level(1-10): 0 Review of Systems Denies fever, chills, sweats Denies shortness of breath, difficulty breathing, chest pain, palpitations, chest pressure. Denies breast pain. Denies dysuria. Denies headache or changes in vision Physical Exam <Martinez Hernandez DO - Last Filed: 02/11/21 07:03> General: Alert, oriented. No acute distress. Cardiac: Regular rate and rhythm, no murmurs/rubs/gallops. Respiratory: Clear to auscultation bilaterally a/p, no wheezes/rales/rhonchi. No increased work of breathing. Symmetrical chest rise. No respiratory distress. Abdomen: Soft, nontender, nondistended. Bowel sounds present. Uterus: Uterine fundus firm, palpable 2 cm below umbilicus. Surgical scar clean and healing well. Lower Extremities: No lower extremity edema or swelling. No deep calf pain. Gallo's negative bilaterally Results & [facility] ([facility]) <Martinez Hernandez DO - Last Filed: 02/11/21 07:03> Vital Signs (Past 12 Hours) Vital Signs Temp Pulse Resp BP Pulse Ox 02/10/21 23:50 37.1 C 98 H 17 105/71 97 <Shirley Ivan MD, FACOG - Last Filed: 02/11/21 07:05> Co-Signing Physician Notes Resident Physician Supervision Note: I interviewed and examined the patient. Discussed with Dr. Castro and agree with findings and plan as documented in the note. Any exceptions or clarifications are listed here: Doing well. Routine POD 2. Patient is very tender with moving so plan to encourage ambulation. h/h stable. Documented By: Shirley Ivan MD, FACOG Resident Activity Tracking <Martinez Hernandez DO - Last Filed: 02/11/21 07:03> Resident Involvement: Resident Care Provided Care Provided: OB Delivery
[2021-02-11 06:23] LABS: Hematocrit (blood only) 25.6 % (37-47); Hemoglobin 8.4 g/dL (12.0-16.0)
[2021-02-11] MEDS: SIMETHICONE 80 MG CHEW PO SCH ×4 (09:01→21:41)
[2021-02-11] MEDS: DOCUSATE SODIUM 100 MG CAP PO SCH ×2 (09:02→21:41)
[2021-02-11] MEDS: PRENATAL VITAMIN 1 TAB PO SCH (09:03)
[2021-02-11] MEDS: FERROUS SULFATE 325 MG TAB PO SCH (09:03)
[2021-02-11] MEDS ORDERED: bisacodyL 10 MG SUPP PR PRN (12:17)
[2021-02-12] MEDS: IBUPROFEN 600 MG TAB PO PRN ×3 (00:12→09:47)
--- NOTE | 2021-02-12 06:17 | Obstetrical Progress Note ---
Date of Service <Martinez Hernandez DO - Last Filed: 02/12/21 07:15> February 12, 2021 Assessment & Plan <Martinez Hernandez DO - Last Filed: 02/12/21 07:15> (1) Encounter for care and examination after delivery: 30 yo post op day 2 from , doing well. -Continue routine post care. - vital signs reviewed and WNL. (Tmax 37.3) -Blood type O+, GBS negative, Rubella Immune. -Encourage ambulation, monitor and control pain with Motrin, tylenol PRN. -encourage breast feeding -Hemoglobin 8.4 on 02/10 and 02/11. -Discussed discharge with patient. Patient will follow up with outpatient OB in 6 weeks. <Ric Pressley MD, FACOG - Last Filed: 02/12/21 07:24> (1) Encounter for care and examination after delivery: Subjective <Martinez Hernandez - Last Filed: 02/12/21 07:15> Ambulation: ambulating normally Voiding: no voiding problems Passing Gas:: Yes Diet Tolerance:: regular diet Lochia:: Small Feeding Type:: breast feeding Current Pain Level(1-10): 0 Review of Systems Denies fever, chills, sweats Denies shortness of breath, difficulty breathing, chest pain, palpitations, chest pressure. Denies breast pain. Denies dysuria. Denies headache or changes in vision Physical Exam <Martinez Hernandez - Last Filed: 02/12/21 07:15> General: Alert, oriented. No acute distress. Cardiac: Regular rate and rhythm, no murmurs/rubs/gallops. Respiratory: Clear to auscultation bilaterally a/p, no wheezes/rales/rhonchi. No increased work of breathing. Symmetrical chest rise. No respiratory distress. Abdomen: Soft, nontender, nondistended. Bowel sounds present. Uterus: Uterine fundus firm, palpable 2 cm below umbilicus. Surgical scar clean and healing well. Lower Extremities: No lower extremity edema or swelling. No deep calf pain. Gallo's negative bilaterally Results & Data ([facility]) <Martinez Solismichelejareth - Last Filed: 02/12/21 07:15> Vital Signs (Past 12 Hours) Vital Signs Temp Pulse Resp BP 02/12/21 00:01 37.1 C 89 18 101/67 02/11/21 19:40 37 C 96 H 18 109/76 <Ric Pressley MD, FACOG - Last Filed: 02/12/21 07:24> Co-Signing Physician Notes Resident Physician Supervision Note: I was present with Dr. Hernandez during the history and exam. I discussed the case with the resident and agree with the findings and plan as documented in the note. Any exceptions or clarifications are listed here: [None] Documented By: Ric Pressley MD, FACOG Resident Activity Tracking <Martinez Hernandez DO - Last Filed: 02/12/21 07:15> Resident Involvement: Resident Care Provided Care Provided: OB Delivery
[2021-02-12] MEDS: DOCUSATE SODIUM 100 MG CAP PO SCH (08:24)
[2021-02-12] MEDS: PRENATAL VITAMIN 1 TAB PO SCH (08:24)
[2021-02-12] MEDS: SIMETHICONE 80 MG CHEW PO SCH (08:24)
[2021-02-12] MEDS: FERROUS SULFATE 325 MG TAB PO SCH (08:25)
[2021-02-12] MEDS ORDERED: ACETAMINOPHEN 500 MG TAB PO PRN (08:35)
--- NOTE | 2021-02-17 08:10 | Discharge Summary ---
Date of Service February 17, 2021 Discharge Data Consultations 02/08/21 08:22 Consult Anesthesiology Stat 02/09/21 10:18 Consult Anesthesiology Stat Procedures Performed Operation Date: 02/09/21 10:30 Actual Procedures p Section in LD for living female child at 1112(Bilateral) - Namrata Parkinson DO Hospital Course (1) Encounter for care and examination after delivery: Patient was admitted for induction of labor, primary low transverse section for delivery, then routine postop care and DC home POD3. Followup in office in 6w. Please see chart documentation for further details. Coding Level of Care Code None Diagnoses Encounter for care and examination after delivery Z39.2
== END 2021-02-12 11:15 | disposition home or self-care (01) | DRG 788 ==
LOC: 4S1 07:56 → 4S2 02-09 15:00